=== PATIENT | female | born 1990 | race Two or more races ===

== ENCOUNTER 2021-10-18 19:23 | Emergency (ER) | payer OTHER ==
[~2021-10-18] VITALS: Ht 160 cm; Wt 86.2 kg
== END 2021-10-18 22:53 | disposition home or self-care (01) ==
LOC: ER 19:23
DX: O98.513 Other viral diseases complicating pregnancy, third trimester (principal); U07.1 COVID-19; Z3A.31 31 weeks gestation of pregnancy

== ENCOUNTER 2021-10-27 20:04 | Inpatient (IN) | payer OTHER ==
[~2021-10-27] VITALS: Ht 152.4 cm; Wt 86.2 kg
[2021-10-27] MEDS ORDERED: PRENATAL TABLE1 EAC3 PO (20:54)
== END 2021-11-02 14:06 | disposition home or self-care (01) | DRG 786 ==
LOC: OBS/DEL 20:04 → LDR 21:57 → OB/GYN 11-01 16:13
PROVIDERS: ADMIT Obstetrics & Gynecology; ATTEND Obstetrics & Gynecology
PROC: 4A1HXCZ Monitoring of Products of Conception, Cardiac Rate, External Approach (ICD-10-PCS; 2021-10-27)
PROC: BY4FZZZ Ultrasonography of Third Trimester, Single Fetus (ICD-10-PCS; 2021-10-28)
PROC: 10D00Z1 Extraction of Products of Conception, Low, Open Approach (ICD-10-PCS; principal; 2021-10-29 21:00)
DX: O36.5930 Maternal care for other known or suspected poor fetal growth, third trimester, not applicable or unspecified (principal); O60.14X0 Preterm labor third trimester with preterm delivery third trimester, not applicable or unspecified; O14.03 Mild to moderate pre-eclampsia, third trimester; O41.03X0 Oligohydramnios, third trimester, not applicable or unspecified; O76 Abnormality in fetal heart rate and rhythm complicating labor and delivery; O26.843 Uterine size-date discrepancy, third trimester; O36.8130 Decreased fetal movements, third trimester, not applicable or unspecified; O36.5130 Maternal care for known or suspected placental insufficiency, third trimester, not applicable or unspecified; Z20.822 Contact with and (suspected) exposure to COVID-19; Z3A.33 33 weeks gestation of pregnancy; Z37.0 Single live birth

== ENCOUNTER → 2025-05-27 13:55 | Outpatient (CLI) | payer OTHER ==
[~2025-05-27 13:55] MED LIST: PRENATAL TABLE1 EAC3 PO
== END | disposition home or self-care (01) ==
LOC: LAB 13:55
PROVIDERS: ATTEND Obstetrics & Gynecology
DX: O09.71 Supervision of high risk pregnancy due to social problems, first trimester (principal)

== ENCOUNTER 2025-05-29 08:00 | Day surgery (SDC) | payer OTHER ==
[2025-05-29] MEDS ORDERED: BUPIVACAINE HCL/MPF 0.5% 30ML VIAL ONE (09:46)
[2025-05-29] MEDS ORDERED: LIDOCAINE HCL 1%/EPINEPHRINE 20ML VIAL IJ ONE (09:47)
[2025-05-29] MEDS ORDERED: POVIDONE-IODINE 118 ML BOTT TOP ONE (09:47)
[2025-05-29] MEDS ORDERED: SUGAMMADEX SODIUM 200 MG/2 ML VIAL IV ONE (11:10)
[2025-05-29] MEDS ORDERED: PROMETHAZINE HCL 50 MG/ML AMPUL IM ONE (11:45)
== END 2025-05-29 14:00 | disposition home or self-care (01) ==
LOC: CIR.AMB 08:00
PROVIDERS: ATTEND Obstetrics & Gynecology
DX: D27.1 Benign neoplasm of left ovary (principal); D28.2 Benign neoplasm of uterine tubes and ligaments